=== PATIENT | female | born 1995 | race Caucasian/White ===

== ENCOUNTER 2017-02-06 20:34 | Emergency (ER) | payer SELFPAY ==
--- NOTE | 2017-02-06 20:56 | Emergency Department Record ---
History of Present Illness - General Chief Complaint: Ankle/Foot Injury Stated Complaint: RT HEEL PAIN Time Seen by Provider: 02/06/17 20:52 Source: Patient Mode of Arrival: Ambulatory Limitations: No limitations - History of Present Illness Initial Comments: 21 yo female presents to ED for evaluation of pain to the right heel for approximately 4 months. Patient denies specific injury, and reports that change in shoes have not improved her symptoms. Patient does report a previous history of stress fracture to the foot as well as injury 1 year ago, and is concerned about possible occult fracture. Patient denies health problems at her baseline. MD Complaint: Foot injury Onset/Timin -: Month(s) Injury: Foot: Right Severity: Moderate Improves With: Nothing Worsens With: Nothing - Related Data Home Medications Medication Instructions Recorded Confirmed Last Taken No Home Med [NO HOME MEDS] 02/06/17 02/06/17 Unknown Allergies Allergy/AdvReac Type Severity Reaction Status Date / Time No Known Drug Allergies Allergy Verified 02/06/17 20:51 Review of Systems Constitutional: Denies: Chills, Fever, Malaise, Night sweats Eyes: Denies: Eye discharge, Eye pain ENT: Denies: Congestion, Ear pain, Epistaxis Respiratory: Denies: Cough, Dyspnea Cardiovascular: Denies: Chest pain, Dyspnea on exertion Endocrine: Denies: Fatigue, Heat or cold intolerance Gastrointestinal: Denies: Abdominal pain, Nausea, Vomiting Genitourinary: Denies: Incontinence, Retention Musculoskeletal: Reports: Arthralgia. Denies: Back pain, Gout, Joint swelling Skin: Denies: Bruising, Change in color Neurological: Denies: Abnormal gait, Confusion, Headache, Seizure Psychiatric: Denies: Anxiety Hematological/Lymphatic: Denies: Anemia, Blood Clots Physical Exam - General General Appearance: Alert, Oriented x3, Cooperative, No acute distress Limitations: No limitations - Head Head exam: Atraumatic, Normocephalic, Normal inspection Head exam detail: negative: Abrasion, Contusion, Hooks's sign, General tenderness, Hematoma, Laceration - Eye Eye exam: Normal appearance. negative: Conjunctival injection, Periorbital swelling, Periorbital tenderness, Scleral icterus - ENT Ear exam: negative: Auricular hematoma, Auricular trauma Nasal Exam: negative: Active bleeding, Discharge, Dried blood, Foreign body Mouth exam: negative: Drooling, Laceration, Muffled voice, Tongue elevation - Neck Neck exam: Normal inspection. negative: Meningismus, Tenderness - Respiratory Respiratory exam: Normal lung sounds bilaterally. negative: Rales, Respiratory distress, Rhonchi, Stridor - Cardiovascular Cardiovascular Exam: Regular rate, Normal rhythm, Normal heart sounds Peripheral Pulses: 3+: Dorsalis Pedis (R) - GI/Abdominal GI/Abdominal exam: Soft. negative: Rebound, Rigid, Tenderness - Rectal Rectal exam: Deferred - exam: Deferred - Extremities Extremities exam: Normal inspection, Full ROM. negative: Pedal edema, Tenderness - Back Back exam: Denies: CVA tenderness (R), CVA tenderness (L) - Neurological Neurological exam: Alert, Normal gait, Oriented X3 - Psychiatric Psychiatric exam: Normal affect, Normal mood - Skin Skin exam: Normal color. negative: Abrasion Type of lesion: negative: abrasion Course Vital Signs 02/06/17 20:47 Temperature 99.0 F Pulse Rate [ 92 H Pulse Ox Probe] Respiratory 18 Rate Blood Pressure 135/85 [Left Arm] Pulse Ox 99 - Reevaluation(s) Reevaluation #1: 02/06/17 21:35 Right foot: Mild calcaneal spurring present, no acute fracture or dislocation is present. Patient was updated on all results, recommended NSAID and possible orthotics for arch support. Patient appears stable for discharge at this time. Disposition Disposition: Discharge Clinical Impression: Heel spur Qualifiers: Laterality: right Qualified Code(s): M77.31 - Calcaneal spur, right foot Disposition: Home, Self-Care Condition: (2) Stable Instructions: Heel Spur (ED) Additional Instructions: Return to ED if your symptoms worsen or if you have any concerns. Ibuprofen as needed. Follow-up with your family doctor in 3-5 days as directed. Forms: Patient Portal Access Time of Disposition: 21:37 Quality - Quality Measures Quality Measures: N/A - Blood Pressure Screening Does Patient Have Any of the Following: No Blood Pressure Classification: Pre-Hypertensive BP Reading Systolic Measurement: 136 Diastolic Measurement: 77 Screening for High Blood Pressure: < Pre-Hypertensive BP, F/U Documented > [ [id number]] Pre-Hypertensive Follow-up Interventions: Referral to alternative/primary care provider.
--- NOTE | 2017-02-07 09:50 | RADIOLOGY REPORT ---
EXAM: RIGHT FOOT COMPLETE HISTORY: RIGHT FOOT PAIN WITHOUT KNOWN INJURY. TECHNIQUE: Three views of the right foot were obtained. Comparison: None. Encounter: Initial. FINDINGS: There is normal bone mineralization. No acute fracture, dislocation , or destructive bone lesion is seen. There is minor beaking/spurring of the proximal dorsal margin of the navicular bone. There is equivocal soft tissue swelling at this level. There is a small plantar calcaneal spur. IMPRESSION: 1. NO ACUTE FRACTURE NOR DISLOCATION. 2. MINOR BEAKING/SPURRING OF THE PROXIMAL DORSAL MARGIN OF THE NAVICULAR BONE. MINOR SOFT TISSUE SWELLING IN THIS REGION QUESTIONED. 3. SMALL PLANTAR CALCANEAL SPUR. JOB NUMBER: [id number] MTDD
== END 2017-02-06 21:45 | disposition home or self-care (01) ==
LOC: ER 20:34
DX: M77.31 Calcaneal spur, right foot (principal)
CPT/HCPCS: 99283